=== PATIENT | female | born 1925 | race Caucasian/White ===

== ENCOUNTER → 2016-09-29 | Day surgery (SDC) | payer MEDICARE ==
[~2016-09-29] MED LIST: ATOR10TA PO; BUPIVACAINE/EPINEPHRINE 0.25% 50 ML VIAL ONE; ECOT81TA2 PO; GLUCTAB OR; LACTATED RINGER'S 1000 ML INJ 1,000 ML ONE; LOSA50TA PO; NAPR550 PO; NEOMYCIN/POLYMYXIN/BACITRACIN OINT 15 GM TUBE ONE; ONDANSETRON HCL 4 MG/2 ML VIAL IV PUSH ONE; PROPOFOL 200 MG/20 ML AMP IV ONE; PROT40TA PO; ceFAZolin INJ 1,000 MG VIAL ONE
--- NOTE | 2016-09-29 15:01 | TN ---
cc: JASVIR VAZQUEZ M.D. DATE OF SURGERY: 09/29/2016 PREOPERATIVE DIAGNOSIS Basal cell carcinoma, left lower extremity. POSTOPERATIVE DIAGNOSIS Basal cell carcinoma, left lower extremity. PROCEDURE PERFORMED Wide local excision basal cell carcinoma, left lower extremity, 3 x 6 cm. SURGEON Jasvir Vazquez [employer] AGENT Tanvi Moreira ANESTHESIA TIVA with local. COMPLICATIONS None. INDICATION FOR PROCEDURE Ms. Herrera is a very pleasant 89-year-old female who had a concerning raised skin lesion on her left lower extremity. She had previously had a basal cell carcinoma excised from the same area. This was felt likely to be a large recurrence. It measured at least a centimeter in diameter. She was advised to undergo wide local excision. Because of its pretibial location on the left lower extremity she was advised that this should be done in the operating room as it would likely require flaps for primary closure. The patient was agreeable. DETAILS OF PROCEDURE The patient was identified, brought to the operating room and placed supine on the operating table. After adequate IV sedation was achieved the left leg was prepped and draped in a standard surgical fashion. Gross negative margins were measured out medially and laterally and this measured a total of 3 cm. Therefore we flakito out a 3 x 6 cm elliptical incision. 0.25% Marcaine was injected circumferentially around the ellipse. A 3 x 6 cm elliptical incision was then made. Subcutaneous tissue was dissected with sharp dissection. Subcutaneous fat was excised up off the lateral border of the tibia. Specimen was excised in toto. A short stitch was placed superior, a long stitch was placed lateral and sent to pathology for analysis. The wound was then irrigated. Medial and lateral flaps were then raised in order to achieve primary closure. Once we did this we were able to get enough tissue laxity to achieve primary closure. Primary closure was accomplished using a 3-0 Vicryl for the subcutaneous tissue interrupted and then 4-0 nylon for the lateral portions and 3-0 nylon for the medial portions of the wound. The wound did close primarily under a moderate amount of tension. The wound was then irrigated a second time and then antibiotic ointment was placed on the incision line itself. Sterile dressings were applied and the patient was awakened and brought to Recovery in stable condition. Jasvir MD GAL Vazquez /2:50 PM /2:56 PM
== END | disposition home or self-care (01) ==
LOC: ESDC 12:35
PROVIDERS: ATTEND Surgery Trauma Surgery
DX: C44.719 Basal cell carcinoma of skin of left lower limb, including hip (principal)
CPT/HCPCS: 00400; 11606; 88305; J0690; J2405; J3010; J7120

== ENCOUNTER 2017-02-08 21:54 | Inpatient (IN) | payer MEDICARE ==
[~2017-02-08] VITALS: Ht 170.2 cm; Wt 68.3 kg
[~2017-02-08 21:54] MED LIST changes: -BUPIVACAINE/EPINEPHRINE 0.25% 50 ML VIAL ONE; -LACTATED RINGER'S 1000 ML INJ 1,000 ML ONE; -NEOMYCIN/POLYMYXIN/BACITRACIN OINT 15 GM TUBE ONE; -ONDANSETRON HCL 4 MG/2 ML VIAL IV PUSH ONE; -PROPOFOL 200 MG/20 ML AMP IV ONE; -ceFAZolin INJ 1,000 MG VIAL ONE
[2017-02-08 21:56] VITALS: BP 215/88; PULSE 114; RESP 20; TEMP 102.7; O2SAT 93
[2017-02-08 22:05] VITALS: BP 197/93; RESP 20
[2017-02-08] MEDS ORDERED: LOSA50TA PO (22:18)
[2017-02-08] MEDS ORDERED: ATOR10TA15 PO (22:18)
[2017-02-08] MEDS ORDERED: METF500T PO (22:18)
[2017-02-08] MEDS ORDERED: XARE10TA PO (22:27)
[2017-02-08] MEDS ORDERED: SODIUM CHLOR 0.9% 1000 ML INJ 1,000 ML IV ONE (22:30)
--- NOTE | 2017-02-08 22:32 | PD ---
HPI Chief Complaint: Respiratory Distress Time Seen by Provider: 22:18 Travel History International Travel<30 days: No Contact w/Intl Traveler<30days: No Traveled to known affect area: No History of Present Illness HPI 89-year-old female complains of fever chills coughing congestion shortness of breath. Patient started having fever 4 days ago. Temperature was up to 100.9 at home. Patient had chest x-ray done as outpatient 2 days ago was negative for infiltrate. Patient just finished Z-Dany recently. Patient complains of persistent coughing, fever chills. Patient states that she started having shortness breath this afternoon. 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 Patient also has history hypertension and diabetes. Patient has not taking her blood pressure medication for the past several days. Patient states that she has poor appetite and generalized malaise and weakness for the past several days. 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 PFSH Past Medical History Heart Rhythm Problems: No Cancer: Yes (LEFT KIDNEY ) Cardiovascular Problems: No High Cholesterol: Yes Chest Pain: No Congestive Heart Failure: No Diabetes: Yes (BORDERLINE) Patient Takes Glucophage: Yes Endocrine: Yes Genitourinary: No Hepatitis: No Hiatal Hernia: No Hypertension: Yes Immune Disorder: No Musculoskeletal: No Neurologic: No Psychiatric: No Reproductive: No Respiratory: No Thyroid Disease: No Ulcer: Yes Tetanus Vaccination: < 5 Years Influenza Vaccination: No Past Surgical History AICD: No Arteriovenous Shunt: No Cardiac Surgery: No Ear Surgery: No Endocrine Surgery: No Eye Surgery: Yes (left eye cataract surgery) Genitourinary Surgery: Yes (PARTIAL LEFT NEPHRECTOMY) Gynecologic Surgery: Yes (HYSTERECTOMY) Hysterectomy: Yes Insulin Pump: No Joint Replacement: No Oral Surgery: Yes (T&A) Pacemaker: No Thoracic Surgery: No Tonsillectomy: Yes Other Surgery: Yes (HYSTERECTOMY IN 70S LEFT PARTIAL NEPRECTOMY 2009) Social History Alcohol Use: No Tobacco Use: No Substance Use: No Allergies-Medications (Allergen,Severity, Reaction): Coded Allergies: No Known Allergies (Verified , 01/05/16) Reported Meds & Prescriptions Reported Meds & Active Scripts Active Reported Xarelto (Rivaroxaban) 10 Mg Tab 10 Mg PO DAILY Atorvastatin (Atorvastatin Calcium) 10 Mg Tab 10 Mg PO HS Metformin (Metformin HCl) 500 Mg Tab 500 Mg PO BID With a meal Losartan (Losartan Potassium) 50 Mg Tab 50 Mg PO DAILY Review of Systems General / Constitutional: Positive: Fever, Chills Eyes: No: Visual changes HENT: No: Headaches Cardiovascular: No: Chest Pain or Discomfort Respiratory: Positive: Cough, Shortness of Breath Gastrointestinal: No: Abdominal Pain Genitourinary: No: Dysuria Musculoskeletal: No: Pain Skin: No Rash Neurologic: No: Weakness Psychiatric: No: Depression Endocrine: No: Polydipsia Hematologic/Lymphatic: No: Easy Bruising Physical Exam Narrative GENERAL: Well-nourished, well-developed patient. SKIN: Focused skin assessment warm/dry. HEAD: Normocephalic. EYES: No scleral icterus. No injection or drainage. NECK: Supple, trachea midline. No JVD or lymphadenopathy. CARDIOVASCULAR: Mild tachycardia rate and rhythm without murmurs, gallops, or rubs. RESPIRATORY: Breath sounds equal bilaterally. No accessory muscle use. Patient has rhonchi at the left base. GASTROINTESTINAL: Abdomen soft, non-tender, nondistended. MUSCULOSKELETAL: No cyanosis, or edema. BACK: Nontender without obvious deformity. No CVA tenderness. Neurologic exam normal. Data Data Last Documented VS Vital Signs Date Time Temp Pulse Resp B/P Pulse Ox O2 Delivery O2 Flow Rate FiO2 02/08/17 22:48 94 Room Air 02/08/17 22:13 104 20 02/08/17 22:05 197/93 02/08/17 21:56 102.7 Orders Electrocardiogram (02/08/17 22:25) Complete Blood Count With Diff (02/08/17 22:25) Comprehensive Metabolic Panel (02/08/17 22:25) B-Type Natriuretic Peptide (02/08/17 22:25) Prothrombin Time / Inr (Pt) (02/08/17 22:25) Act Partial Throm Time (Ptt) (02/08/17 22:25) Blood Culture (02/08/17 22:25) Urinalysis - C+S If Indicated (02/08/17 22:25) Thyroid Stimulating Hormone (02/08/17 22:25) Influenzae A/B Antigen (02/08/17 22:25) Chest, Single Ap (02/08/17 22:25) Iv Access Insert/Monitor (02/08/17 22:25) Ecg Monitoring (02/08/17 22:25) Oximetry (02/08/17 22:25) Lactic Acid Sepsis Protocol (02/08/17 22:25) Sodium Chlor 0.9% 1000 Ml Inj (Ns 1000 M (02/08/17 22:30) Cefepime Inj (Maxipime Inj) (02/08/17 23:15) Vancomycin Inj (Vancomycin Inj) (02/08/17 23:15) Sodium Chlor 0.9% 1000 Ml Inj (Ns 1000 M (02/08/17 23:15) Acetaminophen (Tylenol) (02/09/17 00:00) Admit Order (Ed Use Only) (02/08/17 23:59) Labs Laboratory Tests Test 02/08/17 22:30 White Blood Count 10.6 TH/MM3 Red Blood Count 4.56 MIL/MM3 Hemoglobin 11.6 GM/DL Hematocrit 34.7 % Mean Corpuscular Volume 76.1 FL Mean Corpuscular Hemoglobin 25.6 PG Mean Corpuscular Hemoglobin 33.6 % Concent Red Cell Distribution Width 16.9 % Platelet Count 251 TH/MM3 Mean Platelet Volume 7.7 FL Neutrophils (%) (Auto) 87.2 % Lymphocytes (%) (Auto) 7.2 % Monocytes (%) (Auto) 4.8 % Eosinophils (%) (Auto) 0.5 % Basophils (%) (Auto) 0.3 % Neutrophils # (Auto) 9.2 TH/MM3 Lymphocytes # (Auto) 0.8 TH/MM3 Monocytes # (Auto) 0.5 TH/MM3 Eosinophils # (Auto) 0.1 TH/MM3 Basophils # (Auto) 0.0 TH/MM3 CBC Comment DIFF FINAL Differential Comment Prothrombin Time 10.7 SEC Prothromb Time International 1.0 RATIO Ratio Activated Partial 27.1 SEC Thromboplast Time Sodium Level 133 MEQ/L Potassium Level 4.0 MEQ/L Chloride Level 99 MEQ/L Carbon Dioxide Level 25.4 MEQ/L Anion Gap 9 MEQ/L Blood Urea Nitrogen 19 MG/DL Creatinine 1.26 MG/DL Estimat Glomerular Filtration 40 ML/MIN Rate Random Glucose 162 MG/DL Lactic Acid Level 2.1 mmol/L Calcium Level 8.0 MG/DL Total Bilirubin 0.6 MG/DL Aspartate Amino Transf 41 U/L (AST/SGOT) Alanine Aminotransferase 26 U/L (ALT/SGPT) Alkaline Phosphatase 79 U/L Total Protein 7.4 GM/DL Albumin 3.4 GM/DL Thyroid Stimulating Hormone 1.690 uIU/ML 3rd Gen [facility] Medical Decision Making Medical Screen Exam Complete: Yes Emergency Medical Condition: Yes Interpretation(s) Last Impressions Chest X-Ray 02/08/17 2225 Signed Impressions: Service Date/Time: Wednesday, February 08, 2017 22:29 - CONCLUSION: Left infrahilar opacity could represent a developing infiltrate. Recommend followup films to radiographic resolution. Morales Evangelista MD 23:28 PM. CBC WBC 10.6. Hemoglobin 11.6 hematocrit 34.7. MCV 76.1. 87 neutrophil. Patient's positive for influenza A antigen 12 PM. Sodium 133. BUN 19. Creatinine 1.26. GFR 40. Lactic acid 2.1. Differential Diagnosis Differential diagnosis including bronchitis, pneumonia, UTI, sepsis, dehydration , electrolyte Narrative Course 89-year-old female with fever chills coughing shortness of breath and poor appetite. Normal saline solution 1 L IV bolus. Normal saline solution 100 cc an hour. Vancomycin 1 g IV. Cefepime 1 g IV. Diagnosis Primary Impression: Pneumonia Qualified Code: J18.1 - Pneumonia of left lower lobe due to infectious organism Additional Impressions: Influenza A Sepsis Qualified Code: A41.9 - Sepsis, due to unspecified organism Renal insufficiency Admitting Information Admitting Physician Requests: Admit James Montero MD Feb 08, 2017 22:32
--- NOTE | 2017-02-08 22:46 | RADRPT ---
EXAM DATE/TIME: 02/08/2017 22:29 [facility] COMPARISON: No previous studies available for comparison. EXTERNAL COMPARISON : [facility] INDICATIONS : Shortness of breath and cough. MEDICAL HISTORY : None. SURGICAL HISTORY : None. ENCOUNTER: Initial ACUITY: 2 days PAIN SCORE: 0/10 LOCATION: Bilateral chest FINDINGS: There is a ill-defined opacity in the left infrahilar region measuring 2.5 cm which could represent a small infiltrate. There is elevation of the left hemidiaphragm. The right lung is clear. Heart is normal in size. CONCLUSION: Left infrahilar opacity could represent a developing infiltrate. Recommend followup films to radiogr aphic resolution. Morales Evangelista MD on February 08, 2017 at 22:43 Board Certified Radiologist. This report was verified electronically.
[2017-02-08 22:48] VITALS: O2SAT 94
[2017-02-08] MEDS ORDERED: SODIUM CHLOR 0.9% 1000 ML INJ 1,000 ML IV SCH (23:15)
[2017-02-08] MEDS ORDERED: VANCOMYCIN INJ 1,000 MG in SODIUM CHLOR 0.9% 250 ML INJ 250 ML IV ONE (23:15)
[2017-02-08] MEDS ORDERED: CEFEPIME INJ 1,000 MG in SODIUM CHLORIDE 0.9% INJ 100 ML IV ONE (23:15)
[2017-02-08 23:20] LABS: AUTOMATED NEUTROPHIL # 9.2 TH/MM3 (1.8-7.7); BASOPHIL % 0.3 % (0.0-2.0); EOSINOPHIL # 0.1 TH/MM3 (0-0.4); EOSINOPHIL % 0.5 % (0.0-4.0); HEMATOCRIT 34.7 % (35.0-46.0); HEMO FLAGS DIFF FINAL; LYMPH % 7.2 % (9.0-44.0); LYMPHOCYTE # 0.8 TH/MM3 (1.0-4.8); MEAN CELL VOLUME 76.1 FL (80.0-100.0); MEAN CORPUSCULAR HEMOGLOBIN 25.6 PG (27.0-34.0); MEAN CORPUSCULAR HGB CONC 33.6 % (32.0-36.0); MONO % 4.8 % (0.0-8.0); NEUT % 87.2 % (16.0-70.0); PLATELET COUNT 251 TH/MM3 (150-450); RED BLOOD COUNT 4.56 MIL/MM3 (4.00-5.30); RED CELL DISTRIBUTION WIDTH 16.9 % (11.6-17.2); WHITE BLOOD COUNT 10.6 TH/MM3 (4.0-11.0)
[2017-02-08 23:25] LABS: APTT (PATIENT) 27.1 SEC (24.3-30.1); PROTHROMBIN TIME - PATIENT 10.7 SEC (9.8-11.6)
[2017-02-08 23:36] LABS: ALT (GPT) 26 U/L (10-53); ANION GAP 9 MEQ/L (5-15); AST (GOT) 41 U/L (15-37); BICARBONATE 25.4 MEQ/L (21.0-32.0); BLOOD UREA NITROGEN 19 MG/DL (7-18); CHLORIDE 99 MEQ/L (98-107); GLOMERULAR FILTRATION RATE 40 ML/MIN (>89); SODIUM (NA) 133 MEQ/L (136-145)
[2017-02-08 23:40] LABS: ALKALINE PHOSPHATASE 79 U/L (45-117); TOTAL BILIRUBIN ADULT 0.6 MG/DL (0.2-1.0)
[2017-02-09] VITALS (11 sets, daily range): BP systolic 133–187; BP diastolic 60–80; PULSE 78–99; RESP 18–20; TEMP 97.2–100.3; O2SAT 94–98
[2017-02-09] MEDS ORDERED: RESP: ALBUTEROL 2.5 MG/IPRATROPIUM 0.5 MG NEB (PRN) NEB
[2017-02-09] MEDS ORDERED: ACETAMINOPHEN 325 MG TAB PO PRN
[2017-02-09] MEDS ORDERED: SENNOSIDES 8.6 MG TAB PO PRN
[2017-02-09] MEDS ORDERED: ONDANSETRON HCL 4 MG/2 ML VIAL IVP PRN
[2017-02-09] MEDS ORDERED: ACETAMINOPHEN 325 MG TAB PO ONE
[2017-02-09] MEDS ORDERED: MAGNESIUM HYDROXIDE SUSP 30 ML CUP PO PRN
[2017-02-09] MEDS ORDERED: BISACODYL 10 MG SUPP RECTAL PRN
[2017-02-09] MEDS ORDERED: Vancomycin Consult Pharmacy 1 EA OTHER SCH
[2017-02-09] MEDS ORDERED: LACTULOSE SYRUP 20 GM/30 ML CUP PO PRN
[2017-02-09] MEDS ORDERED: ACETAMINOPHEN/HYDROcodone 325 MG/5 MG TAB PO PRN
[2017-02-09] MEDS ORDERED: SODIUM CHLORIDE 0.9% FLUSH 10 ML FLUSH IV FLUSH PRN
[2017-02-09] MEDS ORDERED: MORPHINE SULFATE 4 MG/ML INJ IV PRN
[2017-02-09] MEDS ORDERED: GLUCAGON 1 MG/ML VIAL OTHER PRN (00:15)
[2017-02-09] MEDS ORDERED: DEXTROSE 50% IN WATER 50 ML VIAL(D50) IV PRN (00:15)
[2017-02-09] MEDS: SODIUM CHLOR 0.9% 1000 ML INJ 1,000 ML IV SCH ×3 (00:17→20:34)
[2017-02-09] MEDS ORDERED: guaiFENesin E.R. 600 MG TAB PO ONE (00:30)
--- NOTE | 2017-02-09 00:35 | HHI.HP ---
HPI Service [facility] Primary Care Physician Lisandra Guerrero MD Admission Diagnosis pneumonia. Influenza A. Sepsis. Diagnoses: (1) Sepsis Diagnosis: Principal (2) PNA (pneumonia) Diagnosis: Principal (3) Influenza A Diagnosis: Principal (4) Renal insufficiency Diagnosis: Principal (5) HTN (hypertension) Diagnosis: Principal (6) DM (diabetes mellitus) Diagnosis: Principal Travel History International Travel<30 Days: No Contact w/Intl Traveler <30 Da: No Traveled to Known Affected Are: No History of Present Illness This is an 89-year-old female with a PMH of HTN, DM, h/o Left Nephrectomy, CKD Stage III and h/o CVA on Xarelto who was brought to the ER by Grandson secondary to worsening SOB and cough. Per family, pt w/ cough/SOB and fever x4- 5 days, +sick contacts. Seen by PCP and started on Z-Pack which she completed. Outpatient CXR 2 days ago negative for infiltrate per report. Per Grandson, pt w/ decreased PO intake, off medications for few days due to symptoms. On arrival, DPT 15/88, HR 114, O2 sat 93% on RA, Temp 102.7. WBC normal however elevated neutrophil count. Creatinine 1.26, previously 1.04 on 01/07/16. Lactic Acid 2.1. INR 1.0. Infl A +. CXR with left infrahilar opacity, likely developing infiltrate. S/p Blood Cultures in ER, Vanc/Cefepime. Review of Systems Except as stated in HPI: all other systems reviewed are Neg ROS: 14 point review of systems otherwise negative. Past Family Social History Past Medical History PMH: HTN, DM, h/o Left Nephrectomy, CKD Stage III and h/o CVA on Xarelto Past Surgical History PAST SURGICAL HISTORY: , Cataract Surgery, Partial Left Nephrectomy, Hysterectomy, Tonsillectomy Allergies: Coded Allergies: No Known Allergies (Verified , 01/05/16) Family History PAST FAMILY HISTORY: Reviewed. No h/o DM or CAD Social History PAST SOCIAL HISTORY: Negative for alcohol, tobacco or drugs. Physical Exam Vital Signs Vital Signs Date Time Temp Pulse Resp B/P Pulse Ox O2 Delivery O2 Flow Rate FiO2 02/09/17 00:19 94 18 157/67 96 Room Air 02/08/17 22:48 94 Room Air 02/08/17 22:13 104 20 93 Room Air 02/08/17 22:05 20 197/93 02/08/17 21:56 102.7 114 20 215/88 93 Room Air Physical Exam PE: GENERAL: Very pleasant elderly white female in no acute distress. Persistent cough. Grandson at bedside HEENT: PERRLA, EOMI. No scleral icterus or conjunctival pallor. No lid lag or facial droop. CARDIOVASCULAR: Regular rate and rhythm. No obvious murmurs to auscultation. No chest tenderness to palpation. RESPIRATORY: No obvious rhonchi or wheezing. Clear to auscultation. Breath sounds equal bilaterally. GASTROINTESTINAL: Abdomen soft, non-tender, nondistended. BS normal. MUSCULOSKELETAL: Extremities without clubbing, cyanosis, or edema. No obvious deformities. NEUROLOGICAL: Awake, alert and oriented x4. No focal neurologic deficits. Moving both upper and lower extremities spontaneously. Laboratory Laboratory Tests Test 02/08/17 22:30 White Blood Count 10.6 Red Blood Count 4.56 Hemoglobin 11.6 Hematocrit 34.7 Mean Corpuscular Volume 76.1 Mean Corpuscular Hemoglobin 25.6 Mean Corpuscular Hemoglobin 33.6 Concent Red Cell Distribution Width 16.9 Platelet Count 251 Mean Platelet Volume 7.7 Neutrophils (%) (Auto) 87.2 Lymphocytes (%) (Auto) 7.2 Monocytes (%) (Auto) 4.8 Eosinophils (%) (Auto) 0.5 Basophils (%) (Auto) 0.3 Neutrophils # (Auto) 9.2 Lymphocytes # (Auto) 0.8 Monocytes # (Auto) 0.5 Eosinophils # (Auto) 0.1 Basophils # (Auto) 0.0 CBC Comment DIFF FINAL Differential Comment Prothrombin Time 10.7 Prothromb Time International 1.0 Ratio Activated Partial 27.1 Thromboplast Time Sodium Level 133 Potassium Level 4.0 Chloride Level 99 Carbon Dioxide Level 25.4 Anion Gap 9 Blood Urea Nitrogen 19 Creatinine 1.26 Estimat Glomerular Filtration 40 Rate Random Glucose 162 Lactic Acid Level 2.1 Calcium Level 8.0 Total Bilirubin 0.6 Aspartate Amino Transf 41 (AST/SGOT) Alanine Aminotransferase 26 (ALT/SGPT) Alkaline Phosphatase 79 Total Protein 7.4 Albumin 3.4 Thyroid Stimulating Hormone 1.690 3rd Gen B-Type Natriuretic Peptide 27 Date/Time Procedure Status Source Growth 02/08/17 22:40 Aerobic Blood Culture Received Blood Peripheral Pending 02/08/17 22:40 Anaerobic Blood Culture Received Blood Peripheral Pending 02/08/17 22:30 Influenza Types A,B Antigen (EDITH) - Final Complete Nasal Washing Positive For Flu A Antigen Result Diagram: 02/08/17222902/08/172229 Assessment and Plan Problem List: (1) Sepsis ICD Code: A41.9 Status: Acute (2) PNA (pneumonia) ICD Code: J18.9 Status: Acute (3) Influenza A ICD Code: J10.1 Status: Acute (4) Renal insufficiency ICD Code: N28.9 Status: Acute (5) HTN (hypertension) ICD Code: I10 Status: Acute (6) DM (diabetes mellitus) ICD Code: E11.9 Status: Acute Assessment and Plan A/P: 1. Sepsis: Temp 102.7, HR 114, Lactic Acid 2.1. WBC normal however elevated neutrophil count and recent antibiotics. Source-PNA. S/p Blood Cultures, check Sputum Cultures, follow up culture results. S/p Vanc/Cefepime in ER, will continue w/ IV Abx, IVF, repeat Lactate. 2. PNA: CXR w/ left perihilar infiltrate, images reviewed by me. S/p completion of Z-Pack as outpatient, +failed outpatient tx. Outpatient CXR reportedly negative 2 days ago. Continue w/ treatment as above, DuoNeb prn, Mucinex. 3. Influenza A: Supportive treatment, IVF, Mucinex, DuoNeb. 4. HTN: BP 215/88, HR 114 on arrival, likely compounded by SOB/acute infectious state in addition to off meds x2-3 days. BP currently 157/67, HR 94. Will monitor. Resume home medications. 5. Renal Insufficiency: Acute on Chronic, h/o CKD w/ partial left nephrectomy. Creatinine 1.26, previously 1.04 on 01/07/16. Pending U/a. IVF for hydration, repeat labs in am. 6. DM: Sliding scale w/ Accu-Cheks. Hold Metformin in light of sepsis and renal insufficiency. 7. DVT Prophylaxis: On Xarelto for h/o CVA. 8. Social work for d/c planning as needed. 9. Case discussed w/ ER physician at length. Physician Certification 2 Midnight Certification Type: Admission for Inpatient Services Order for Inpatient Services The services are ordered in accordance with Medicare regulations or non- Medicare payer requirements, as applicable. In the case of services not specified as inpatient-only, they are appropriately provided as inpatient services in accordance with the 2-midnight benchmark. Estimated LOS (days): 2 days is the estimated time the patient will need to remain in the hospital, assuming treatment plan goals are met and no additional complications. Post-Hospital Plan: Not yet determined Problem Qualifiers (1) Sepsis: Qualified Code: A41.9 - Sepsis, due to unspecified organism Vilma Sky MD Feb 09, 2017 00:35
[2017-02-09 00:36] LABS: BLOOD, URINE SMALL (NEG); COMMENT (UR) CULT NOT INDICATED; CULTURE IF INDICATED CULT NOT INDICATED; GLUCOSE,URINE TRACE mg/dL (NEG); KETONE, URINE NEG (NEG); MUCUS URINE FEW /lpf (OCC); NITRITE,URINE NEG (NEG); PH, URINE 5.5 (5.0-8.5); SQUAMOUS EPITHELIAL CELL URINE <1 /hpf (0-5); URINE COLOR YELLOW (YELLW/STRAW)
[2017-02-09 01:10] LABS: LACTIC ACID GHOST NOT REPORTABLE
[2017-02-09 02:55] LABS: AUTOMATED NEUTROPHIL # 8.5 TH/MM3 (1.8-7.7); BASOPHIL % 0.4 % (0.0-2.0); HEMATOCRIT 28.3 % (35.0-46.0); HEMO FLAGS DIFF FINAL; LYMPH % 8.9 % (9.0-44.0); LYMPHOCYTE # 0.9 TH/MM3 (1.0-4.8); MEAN CELL VOLUME 75.7 FL (80.0-100.0); MEAN CORPUSCULAR HEMOGLOBIN 25.6 PG (27.0-34.0); MEAN CORPUSCULAR HGB CONC 33.9 % (32.0-36.0); MONO % 6.8 % (0.0-8.0); NEUT % 83.9 % (16.0-70.0); PLATELET COUNT 190 TH/MM3 (150-450); RED BLOOD COUNT 3.74 MIL/MM3 (4.00-5.30); RED CELL DISTRIBUTION WIDTH 16.8 % (11.6-17.2); WHITE BLOOD COUNT 10.1 TH/MM3 (4.0-11.0)
[2017-02-09 03:28] LABS: BICARBONATE 22.1 MEQ/L (21.0-32.0); CALCIUM-PROTEIN CORRECTED 8.1 MG/DL (8.5-10.1); POTASSIUM 3.4 MEQ/L (3.5-5.1); TOTAL BILIRUBIN ADULT 0.7 MG/DL (0.2-1.0)
[2017-02-09] MEDS: INSULIN ASPART SUPPLEMENTAL SCALE SQ SCH ×4 (06:22→20:33)
[2017-02-09] MEDS: SODIUM CHLORIDE 0.9% FLUSH 10 ML FLUSH IV FLUSH SCH ×2 (09:00→20:33)
[2017-02-09] MEDS: DOCUSATE SODIUM 50 MG/SENNA 8.6 MG TAB PO SCH ×2 (09:00→20:32)
[2017-02-09] MEDS: BUDESONIDE-FORMOTEROL 160/4.5 MCG INHALER INH SCH ×2 (09:12→20:35)
[2017-02-09] MEDS: RIVAROXABAN 10 MG TAB PO SCH (09:13)
[2017-02-09] MEDS: CEFEPIME INJ 1,000 MG in SODIUM CHLORIDE 0.9% INJ 100 ML IV SCH ×2 (09:13→20:33)
[2017-02-09] MEDS: guaiFENesin E.R. 600 MG TAB PO SCH ×2 (09:14→20:32)
[2017-02-09] MEDS: LOSARTAN 50 MG TAB PO SCH (09:14)
[2017-02-09] MEDS ORDERED: VANCOMYCIN 1,000 MG/NS 250 ML IV SCH ×2 (10:00)
--- NOTE | 2017-02-09 15:34 | EKG ---
Date Performed: 02/08/2017 Time Performed: 22:25:16 PTAGE: 89 years EKG: SINUS TACHYCARDIA LEFT ANTERIOR FASCICULAR BLOCK ABNORMAL QRS-T ANGLE ABNORMAL ECG PREVIOUS TRACING : 01/05/2016 18.23 Compared to previous tracing, sinus rate has increased. Axi s has shifted leftward. DOCTOR: Harley Wise Interpretating Date/Time 02/09/2017 15:32:21
[2017-02-09] MEDS ORDERED: ATORVASTATIN 10 MG TAB PO SCH (21:00)
[2017-02-10] MEDS ORDERED: VANCOMYCIN 1,000 MG/NS 250 ML IV SCH ×2 (01:00)
[2017-02-10 04:30] VITALS: BP 167/77; PULSE 88; RESP 18; TEMP 97.9; O2SAT 94
[2017-02-10] MEDS: SODIUM CHLOR 0.9% 1000 ML INJ 1,000 ML IV SCH (05:50)
[2017-02-10] MEDS: INSULIN ASPART SUPPLEMENTAL SCALE SQ SCH ×2 (06:11→11:00)
[2017-02-10 08:07] VITALS: BP 134/80; PULSE 84; RESP 18; TEMP 99.4; O2SAT 94
[2017-02-10] MEDS: LOSARTAN 50 MG TAB PO SCH (08:11)
[2017-02-10] MEDS: RIVAROXABAN 10 MG TAB PO SCH (08:11)
[2017-02-10] MEDS: guaiFENesin E.R. 600 MG TAB PO SCH (08:11)
[2017-02-10] MEDS: SODIUM CHLORIDE 0.9% FLUSH 10 ML FLUSH IV FLUSH SCH (08:12)
[2017-02-10] MEDS: BUDESONIDE-FORMOTEROL 160/4.5 MCG INHALER INH SCH (08:18)
[2017-02-10] MEDS: CEFEPIME INJ 1,000 MG in SODIUM CHLORIDE 0.9% INJ 100 ML IV SCH (08:18)
[2017-02-10] MEDS: DOCUSATE SODIUM 50 MG/SENNA 8.6 MG TAB PO SCH (08:19)
[2017-02-10 12:07] VITALS: BP 177/77; PULSE 85; RESP 19; TEMP 98.1; O2SAT 97
[2017-02-10] MEDS ORDERED: OSEL75 PO (13:52)
[2017-02-10] MEDS ORDERED: LEVO750T3 PO (13:52)
--- NOTE | 2017-02-10 13:56 | HHI.PR ---
Subjective Remarks Follow up for left perihilar infiltrates, Influenza A. Patient is doing well. Denies any chest pain, shortness of breath, fever or chills. She is not requiring any supplemental O2. Ambulating well. Daughter is at bedside. Wants to go home. Objective Vitals Vital Signs Date Time Temp Pulse Resp B/P Pulse Ox O2 Delivery O2 Flow Rate FiO2 02/10/17 12:07 98.1 85 19 177/77 97 02/10/17 08:07 99.4 84 18 134/80 94 02/10/17 08:00 Room Air 02/10/17 04:30 97.9 88 18 167/77 94 02/10/17 04:00 Room Air 02/10/17 00:00 Room Air 02/09/17 23:55 99.2 89 18 148/65 95 02/09/17 20:34 172/78 Automatic Cuff 02/09/17 20:00 87 02/09/17 20:00 Room Air 02/09/17 17:33 97.2 80 18 187/79 96 02/09/17 16:09 99.4 99 18 133/80 95 I/O 02/09/17 02/09/17 02/09/17 02/10/17 02/10/17 02/10/17 07:00 15:00 23:00 07:00 15:00 23:00 Intake Total 900 ml 1211 ml 1139 ml 787 ml Output Total 200 ml Balance 900 ml 1211 ml 939 ml 787 ml Intake Oral 480 ml 480 ml 120 ml IV Total 900 ml 731 ml 659 ml 667 ml Output Urine Total 200 ml # Voids 0 2 # Bowel Movements 0 0 Result Diagram: 02/09/17 0243 02/09/17 0243 Imaging Last Impressions Chest X-Ray 02/08/172224 Signed Impressions: Service Date/Time: Wednesday, February 08, 2017 22:29 - CONCLUSION: Left infrahilar opacity could represent a developing infiltrate. Recommend followup films to radiographic resolution. Morales Evangelista MD Objective Remarks GENERAL: AOX3, NAD. SKIN: Warm and dry. HEAD: Normocephalic. EYES: No scleral icterus. No injection or drainage. NECK: Supple, trachea midline. No JVD or lymphadenopathy. CARDIOVASCULAR: Regular rate and rhythm without murmurs, gallops, or rubs. RESPIRATORY: Breath sounds equal bilaterally. No accessory muscle use. GASTROINTESTINAL: Abdomen soft, non-tender, nondistended. MUSCULOSKELETAL: No cyanosis, or edema. BACK: Nontender without obvious deformity. No CVA tenderness. Procedures None. A/P Problem List: (1) Sepsis ICD Code: A41.9 Status: Acute (2) PNA (pneumonia) ICD Code: J18.9 Status: Acute (3) Influenza A ICD Code: J10.1 Status: Acute (4) Renal insufficiency ICD Code: N28.9 Status: Acute (5) HTN (hypertension) ICD Code: I10 Status: Acute (6) DM (diabetes mellitus) ICD Code: E11.9 Status: Acute Assessment and Plan This is an 89-year-old female with a PMH of HTN, DM, h/o Left Nephrectomy, CKD Stage III and h/o CVA on Xarelto who was brought to the ER by Grandson secondary to worsening SOB and cough. Per family, pt w/ cough/SOB and fever x4- 5 days, +sick contacts. Seen by PCP and started on Z-Pack which she completed. Outpatient CXR 2 days ago negative for infiltrate per report. - Sepsis likely due to pneumonia - Left sided pneumonia - Influenza A - CXR reviewed by me, shows left sided infiltrate. - Lactic acid 2.1 --> 1.3. Afebrile. - s/p Vanc/Cefepime. - Will start patient on Levaquin 750mg Qday x 6 days. - Also start Oseltamivir 75mg PO BID X 5 days. - Hypertension - continue Losartan 50mg Qday. - Diabetes mellitus - continue Metformin 500mg BID on discharge. - Acute kidney injury - Creatinine improved from 1.26 --> 1.09. Full code. Xarelto Patient had a remarkable response to treatment with more rapid improvement than expected. She is doing well on room air. Ambulating well. Discharge patient to home Condition on discharge: Improved Diabetic Diet as tolerated Ad Morelia activity Rx written: - Levaquin 750mg Qday X 6 days. - Tamiflu 75mg BID X 5 days - Guaifenesin-codeine for cough PRN Follow-up with primary care physician within one week. CXR PA/LAT in 4 weeks. Problem Qualifiers (1) Sepsis: Qualified Code: A41.9 - Sepsis, due to unspecified organism Sallie Young DO Feb 10, 2017 13:56
[2017-02-10] MEDS ORDERED: GUAISYP4 PO (13:57)
[2017-02-11] MEDS ORDERED: VANCOMYCIN INJ 1,250 MG in SODIUM CHLOR 0.9% 250 ML INJ 250 ML IV SCH (01:00)
[2017-02-12] MEDS ORDERED: PHARMACY ORDERED LAB ONE (00:45)
== END 2017-02-10 15:35 | disposition home or self-care (01) | DRG 871 ==
LOC: NEPC 21:54 → NEDA 02-09 00:06 → N04A 02-09 01:16
PROVIDERS: ADMIT Hospitalist; ATTEND Hospitalist
DX: A41.9 Sepsis, unspecified organism (principal); J10.00 Influenza due to other identified influenza virus with unspecified type of pneumonia; N17.9 Acute kidney failure, unspecified; E11.22 Type 2 diabetes mellitus with diabetic chronic kidney disease; N18.3 Chronic kidney disease, stage 3 (moderate); I12.9 Hypertensive chronic kidney disease with stage 1 through stage 4 chronic kidney disease, or unspecified chronic kidney disease; Z86.73 Personal history of transient ischemic attack (TIA), and cerebral infarction without residual deficits; Z79.01 Long term (current) use of anticoagulants; Z79.84 Long term (current) use of oral hypoglycemic drugs; Z90.5 Acquired absence of kidney
CPT/HCPCS: 71010; 80053; 81001; 82948; 83605; 83880; 84443; 85025; 85610; 85730; 87040; 87070; 87205; 87804; 93005; 96374; J0692; J1815; J3370; J7030; J7050